=== PATIENT | male | born 1990 | race African-American/Black ===

== ENCOUNTER 2017-01-09 21:17 | Emergency (ER) | payer SELFPAY ==
[~2017-01-09] VITALS: Ht 175.3 cm; Wt 75.0 kg
[~2017-01-09 21:17] MED LIST: DOCU1CAP39 PO; HYDR2.5%T PR; LIDO5%T TOP
[2017-01-09 21:18] VITALS: BP 120/77; PULSE 68; RESP 15; TEMP 98.6; O2SAT 99
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
== END 2017-01-09 22:07 | disposition left against medical advice (07) ==
LOC: NEPK 21:17
DX: M54.9 Dorsalgia, unspecified (principal); Z72.0 Tobacco use
CPT/HCPCS: 99281

== ENCOUNTER 2017-02-17 22:12 | Emergency (ER) | payer SELFPAY ==
[~2017-02-17] VITALS: Ht 175.3 cm; Wt 75.0 kg
[2017-02-17 22:14] VITALS: BP 118/80; PULSE 69; RESP 16; TEMP 98.4; O2SAT 99
== END 2017-02-17 22:40 | disposition left against medical advice (07) ==
LOC: NED 22:12
DX: R68.89 Other general symptoms and signs (principal)
CPT/HCPCS: 99281